=== PATIENT | female | born 1990 | race Hispanic/Latino ===

== ENCOUNTER 2016-06-22 01:36 | Emergency (ER) | payer MEDICAID, OTHER ==
[2016-06-22 01:41] VITALS: BMI 31.2
[2016-06-22 01:43] VITALS: TEMP 98.3
--- NOTE | 2016-06-22 02:02 | ED PDOC ---
Arrival/HPI - General Chief Complaint: Back Pain Time Seen by Provider: 06/22/16 01:39 Historian: Patient - History of Present Illness Narrative History of Present Illness (Text): 06/22/16 02:01 Javon Melton is a 26 year old female, P:1 A:1, currently 5 months , who presents to the Emergency department complaining of left mid to lower back discomfort status post mechanical fall. Patient states earlier tonight she slipped and fell backwards in to the bathtub.Patient denies any abdominal pain, vaginal bleeding, vaginal discharge, nausea, vomiting, head trauma/injury, neck pain, or any other complaints. Time/Duration: Other (tonight) Symptom Onset: Gradual Symptom Course: Unchanged Activities at Onset: Light Context: Standing, Tripped Past Medical History - Provider Review Nursing Documentation Reviewed: Yes - Infectious Disease Hx of Infectious Diseases: None - Tetanus Immunization Tetanus Immunization: Unknown - Past Medical History Past Medical History: No Previous - Psychiatric Hx Substance Use: No - Past Surgical History Past Surgical History: No Previous - Anesthesia Hx Anesthesia: No Hx Anesthesia Reactions: No Hx Malignant Hyperthermia: No - Suicidal Assessment Feels Threatened In Home Enviroment: No Family/Social History - Physician Review Nursing Documentation Reviewed: Yes Family/Social History: No Known Family HX Smoking Status: Never Smoked Hx Alcohol Use: No Hx Substance Use: No Allergies/Home Meds Allergies/Adverse Reactions: Allergies No Known Allergies Allergy (Verified 09/03/12 06:54) per patient Home Medications: Home Meds Medication Instructions Recorded Confirmed No Known Home Med 06/22/16 06/22/16 Review of Systems - Physician Review All systems were reviewed & negative as marked: Yes - Review of Systems Constitutional: Normal. absent: Fevers Eyes: Normal ENT: Normal Respiratory: Normal. absent: SOB, Cough Cardiovascular: Normal. absent: Chest Pain Gastrointestinal: Normal. absent: Abdominal Pain, Diarrhea, Nausea, Vomiting Genitourinary Female: Normal. absent: Dysuria, Frequency, Hematuria, Urine Output Changes Musculoskeletal: Back Pain. absent: Neck Pain Skin: Normal Neurological: Normal Endocrine: Normal Hemo/Lymphatic: Normal Psychiatric: Normal Physical Exam Vital Signs Reviewed: Yes Vital Signs Temp Pulse Resp BP Pulse Ox 06/22/16 01:43 98.3 F 92 H 18 131/81 99 Temperature: Afebrile Blood Pressure: Normal Pulse: Regular Respiratory Rate: Normal Appearance: Positive for: Well-Appearing, Non-Toxic, Comfortable Pain Distress: None Mental Status: Positive for: Alert and Oriented X 3 - Systems Exam Head: Present: Atraumatic, Normocephalic Pupils: Present: PERRL Extroacular Muscles: Present: EOMI Conjunctiva: Present: Normal Mouth: Present: Moist Mucous Membranes Neck: Present: Normal Range of Motion Respiratory/Chest: Present: Clear to Auscultation, Good Air Exchange. No: Respiratory Distress, Accessory Muscle Use Cardiovascular: Present: Regular Rate and Rhythm, Normal S1, S2. No: Murmurs Abdomen: Present: Normal Bowel Sounds. No: Tenderness, Distention, Peritoneal Signs Back: Present: Paraspinal Tenderness (Mild left lateral posterior thoracic back tenderness, no crepitus). No: CVA Tenderness, Midline Tenderness, Pain with Leg Raise Upper Extremity: Present: Normal Inspection, Normal ROM, NORMAL PULSES. No: Cyanosis, Edema Lower Extremity: Present: Normal Inspection, NORMAL PULSES, Normal ROM. No: Edema Neurological: Present: GCS=15, CN II-XII Intact, Speech Normal, Motor Func Grossly Intact, Normal Sensory Function Skin: Present: Warm, Dry, Normal Color. No: Rashes Psychiatric: Present: Alert, Oriented x 3, Normal Insight, Normal Concentration Medical Decision Making ED Course and Treatment: 06/22/16 02:01 Impression: 26 year old female complaining of mid to lower back pain s/p fall tonight. Differential Diagnosis include but are not limited to: muscular strain vs. contusion Plan: -- Tylenol -- Heart Rate -- Reassess and disposition Progress Notes: 06/22/16 03:00 RN reports heart rate: 140 bpm. 06/22/16 03:35 On re-evaluation, the patient feels better and is in no acute distress. I have discussed the results and plan with the patient, who expresses understanding. Patient in agreement with plan to discharged home. Patient is stable for discharge. Patient was instructed to follow up with physician/clinic in 1-2 days or return if symptoms worsen or new concerning symptoms arise. - Medication Orders Current Medication Orders: Discontinued Medications Acetaminophen (Tylenol 325mg Tab) 650 mg PO STAT STA Stop: 06/22/16 02:14 Last Admin: 06/22/16 02:24 Dose: 650 mg - Scribe Statement The provider has reviewed the documentation as recorded by the Stef Dowd Provider Attestation: All medical record entries made by the Westleyibkrupa were at my direction and personally dictated by me. I have reviewed the chart and agree that the record accurately reflects my personal performance of the history, physical exam, medical decision making, and the department course for this patient. I have also personally directed, reviewed, and agree with the discharge instructions and disposition. Disposition/Present on Arrival - Present on Arrival Any Indicators Present on Arrival: No History of DVT/PE: No History of Uncontrolled Diabetes: No Urinary Catheter: No History of Decub. Ulcer: No History Surgical Site Infection Following: None - Disposition Have Diagnosis and Disposition been Completed?: Yes Diagnosis: Muscle strain, Back contusion Disposition: HOME/ ROUTINE Disposition Time: 03:35 Patient Plan: Discharge Patient Problems: Current Active Problems Problem Status Onset Back contusion Acute Muscle strain Acute Condition: GOOD Additional Instructions: Rest/no strenuous physical activity/Tylenol as directed/follow up with your doctor this week Referrals: Rose Marie Cadena MD [Primary Care Provider] - Follow up with primary
[2016-06-22 04:03] VITALS: BP 101/66; PULSE 77; RESP 16; O2SAT 100
== END 2016-06-22 04:03 | disposition home or self-care (01) ==
LOC: ED 01:36
DX: S39.012A Strain of muscle, fascia and tendon of lower back, initial encounter (principal); S30.0XXA Contusion of lower back and pelvis, initial encounter; W01.0XXA Fall on same level from slipping, tripping and stumbling without subsequent striking against object, initial encounter

== ENCOUNTER 2018-03-05 19:57 | Emergency (ER) | payer SELFPAY ==
[2018-03-05 20:17] VITALS: BMI 30.5
[2018-03-05 20:26] VITALS: TEMP 98.6; O2SAT 100
[2018-03-05 21:18] LABS: ALB/GLOB RATIO 1.3 (1.1-1.8); ALBUMIN 4.5 g/dL (3.0-4.8); ALT/SGPT 22 U/L (7-56); AST/SGOT 22 U/L (14-36); BLOOD UREA NITROGEN 12 mg/dL (7-21); CALCIUM 10.1 mg/dL (8.4-10.5); GFR NON-AFRICAN AMERICAN > 60
[2018-03-05 21:25] LABS: HEMOGLOBIN 13.5 g/dL (12.0-16.0); MEAN CELL VOLUME 85.4 fl (80.0-105.0); MEAN CORPUSCULAR HEMOGLOBIN 28.7 pg (25.0-35.0); RBC 4.71 10^6/uL (3.5-6.1); WHITE BLOOD COUNT 13.5 10^3/uL (4.5-11.0)
[2018-03-05 21:26] LABS: BASO # 0.03 K/mm3 (0.0-2.0); BASO % 0.2 % (0.0-3.0); EOS # 0.1 (0.0-0.7); EOS % 0.8 % (1.5-5.0); GRAN # 7.83 (1.4-6.5); GRAN % 58.1 % (50.0-68.0); LYMPH # 4.8 (1.2-3.4); LYMPH % 35.9 % (22.0-35.0); MEAN CORPUSCULAR HGB CONC 33.6 g/dl (31.0-37.0); MEAN PLATELET VOLUME 10.6 fl (7.0-11.0); MONO # 0.7 (0.1-0.6)
[2018-03-05 21:28] LABS: TROPONIN I < 0.01 ng/mL
[2018-03-05 21:35] LABS: INR 1.03; PARTIAL THROMBOPLASTIN TIME 30.8 Seconds (25.1-36.5); PROTHROMBIN TIME 11.7 SECONDS (9.4-12.5)
[2018-03-05 21:40] LABS: D DIMER < 200 ng/mlDDU (0-243)
--- NOTE | 2018-03-05 22:09 | ED PDOC ---
Arrival/HPI - General Chief Complaint: Chest Pain Time Seen by Provider: 03/05/18 20:11 Historian: Patient - History of Present Illness Narrative History of Present Illness (Text): 03/05/18 22:07 A 27 year old female, with no significant past medical history, presents to the emergency department complaining of non-radiating, intermittent left-side chest pain for 6 days. Patient reports sometimes experiencing associated shortness of breath that last approximately 30 minutes. Pain worsens with movement, leaning forward, and with deep breathing. Patient denies any fever, cough, nausea, vomiting, back pain, leg pain/swelling, abdominal pain, or any other complaints at this time. Denies any history of smoking. Denies any recent travel. PMD: Dr. Baires Time/Duration: < week (6 days) Past Medical History - Provider Review Nursing Documentation Reviewed: Yes - Infectious Disease Hx of Infectious Diseases: None - Tetanus Immunization Tetanus Immunization: Unknown - Past Medical History Past Medical History: No Previous - Psychiatric Hx Substance Use: No - Past Surgical History Past Surgical History: No Previous - Anesthesia Hx Anesthesia: No Hx Anesthesia Reactions: No Hx Malignant Hyperthermia: No - Suicidal Assessment Feels Threatened In Home Enviroment: No Family/Social History - Physician Review Nursing Documentation Reviewed: Yes Family/Social History: No Known Family HX Smoking Status: Never Smoked Hx Alcohol Use: No Hx Substance Use: No Allergies/Home Meds Allergies/Adverse Reactions: Allergies No Known Allergies Allergy (Verified 09/03/12 06:54) per patient Review of Systems - Physician Review All systems were reviewed & negative as marked: Yes - Review of Systems Constitutional: absent: Fevers Respiratory: SOB (associated with chest pain, last for approximately 30 minutes). absent: Cough Cardiovascular: Chest Pain (non-radiating, intermittent left-side chest pain) Gastrointestinal: absent: Abdominal Pain, Nausea, Vomiting Musculoskeletal: absent: Back Pain, Other (no leg pain/swelling) Physical Exam Vital Signs Reviewed: Yes Vital Signs Temp Pulse Resp BP Pulse Ox 03/05/18 20:45 99 H 18 121/73 100 03/05/18 20:00 98.6 F 112 H 21 123/75 100 Temperature: Afebrile Blood Pressure: Normal Pulse: Regular Respiratory Rate: Normal Appearance: Positive for: Well-Appearing, Non-Toxic, Comfortable Pain Distress: Mild Mental Status: Positive for: Alert and Oriented X 3 - Systems Exam Head: Present: Atraumatic, Normocephalic Pupils: Present: PERRL Extroacular Muscles: Present: EOMI Conjunctiva: Present: Normal Mouth: Present: Moist Mucous Membranes Neck: Present: Normal Range of Motion Respiratory/Chest: Present: Clear to Auscultation, Good Air Exchange, Tender to Palpation (to the L midsternal chest). No: Respiratory Distress, Accessory Muscle Use Cardiovascular: Present: Regular Rate and Rhythm, Normal S1, S2. No: Murmurs Abdomen: No: Tenderness, Distention, Peritoneal Signs Back: Present: Normal Inspection Upper Extremity: Present: Normal Inspection. No: Cyanosis, Edema Lower Extremity: Present: Normal Inspection. No: Edema Neurological: Present: GCS=15, CN II-XII Intact, Speech Normal Skin: Present: Warm, Dry, Normal Color. No: Rashes Psychiatric: Present: Alert, Oriented x 3, Normal Insight, Normal Concentration Medical Decision Making ED Course and Treatment: 03/05/18 22:08 Impression: 27 year old female with non-radiating, intermittent left-side chest pain associated shortness of breath. No acute findings on physical examination. Plan: -- EKG -- Chest X-ray -- Nasal Cannula O2 -- POC Urine Test -- Toradol -- Reassess and disposition Progress Notes: EKG: ST at 123 bpm, (-) acute ST changes, as read by PA. CXR : NAD, as read by PA Labs reviewed : trop (-), d-dimer (-). On reevaluation, patient reports improvement of symptoms, denies any pain, SOB or back pain. VS : P 84 98%RA BP 106/61. On exam, patient remains awake alert and oriented 3 in no acute distress. Diagnostic results d/w the patient. Diagnosis of possible costochondritis d/w the patient. Advised to follow up with primary care physician tomorrow without fail. Advised to take medication as prescribed. Return to the emergency room at any time for any new or worsening symptoms. Patient states she fully agrees with and understands discharge instructions. States that she agrees with the plan and disposition. Verbalized and repeated discharge instructions and plan. I have given the patient opportunity to ask any additional questions. - Lab Interpretations Lab Results: PT 11.7 SECONDS (9.4-12.5) 03/05/18 20:20 INR 1.03 03/05/18 20:20 APTT 30.8 Seconds (25.1-36.5) 03/05/18 20:20 D-Dimer, Quantitative < 200 ng/mlDDU (0-243) 03/05/18 20:20 Troponin I < 0.01 ng/mL 03/05/18 20:20 Total Bilirubin 0.3 mg/dL (0.2-1.3) 03/05/18 20:20 AST 22 U/L (14-36) 03/05/18 20:20 ALT 22 U/L (7-56) 03/05/18 20:20 Alkaline Phosphatase 82 U/L (38-126) 03/05/18 20:20 Total Protein 8.0 g/dL (5.8-8.3) 03/05/18 20:20 Albumin 4.5 g/dL (3.0-4.8) 03/05/18 20:20 Globulin 3.5 gm/dL 03/05/18 20:20 Albumin/Globulin Ratio 1.3 (1.1-1.8) 03/05/18 20:20 - RAD Interpretation Radiology Orders: 03/05/18 20:46 CHEST PORTABLE [RAD] Stat - Medication Orders Current Medication Orders: Discontinued Medications Ketorolac Tromethamine (Toradol) 15 mg IVP STAT STA Stop: 03/05/18 20:51 Last Admin: 03/05/18 21:35 Dose: 15 mg MAR Pain Assessment Document 03/05/18 21:35 HN (Rec: 03/05/18 21:36 HN [id number]) Pain Reassessment Is this a pain reassessment? Yes Sleep Is patient sleeping during reassessment? No Presence of Pain Presence of Pain Yes Pain Scale Used Protocol: PSCALES Pain Scale Used Numeric Location Pain Location Body Site Chest Description Description Intermittent Intensity of Pain at present 7 IVP Administration Document 03/05/18 21:35 HN (Rec: 03/05/18 21:36 HN [id number]) Charges for Administration # of IVP Administrations 1 - PA / TAP GRINDER / Resident Statement MD/DO has reviewed & agrees with the documentation as recorded. - Scribe Statement The provider has reviewed the documentation as recorded by the Stef Crowell Provider Scribe Attestation: All medical record entries made by the Scribe were at my direction and personally dictated by me. I have reviewed the chart and agree that the record accurately reflects my personal performance of the history, physical exam, medical decision making, and the department course for this patient. I have also personally directed, reviewed, and agree with the discharge instructions and disposition. Disposition/Present on Arrival - Present on Arrival Any Indicators Present on Arrival: No History of DVT/PE: No History of Uncontrolled Diabetes: No Urinary Catheter: No History of Decub. Ulcer: No History Surgical Site Infection Following: None - Disposition Have Diagnosis and Disposition been Completed?: Yes Diagnosis: Chest wall pain Disposition: HOME/ ROUTINE Disposition Time: 23:15 Patient Plan: Discharge Condition: STABLE Discharge Instructions (ExitCare): Chest Pain (ED), Costochondritis Additional Instructions: Thank you for letting us take care of you today. You were treated for chest wall pain. The emergency medical care you received today was directed at your acute symptoms. If you were prescribed any medication, please fill it and take as directed. It may take several days for your symptoms to resolve. Return to the Emergency Department if your symptoms worsen, do not improve, or if you have any other problems. Please contact your doctor in 2 days for re-evaluation and follow up. Bring any paperwork you were given at discharge with you along with any medications you are taking to your follow up visit. Our treatment cannot replace ongoing medical care by a primary care provider (PCP) outside of the emergency department. Thank you for allowing the [email or web address] team to be part of your care today. If you had an X-Ray : A Radiologist will review the ED reading if any change in treatment is needed we will contact you. Prescriptions: Naproxen 500 mg PO BID PRN #20 tablet PRN Reason: Pain, Moderate (4-7) Referrals: Rose Marie Cadena MD [Primary Care Provider] - Follow up with primary Forms: [employer] (Setswana), WORK NOTE
[2018-03-05] MEDS ORDERED: Potassium Chloride 40 mEq/30 ml LIQ UD PO STA (22:11)
[2018-03-05 23:53] VITALS: BP 125/82; PULSE 78; RESP 16
--- NOTE | 2018-03-06 08:33 | RAD ---
HISTORY: CP COMPARISON: None available. TECHNIQUE: Chest, one view. FINDINGS: LUNGS: No focal consolidation. Please note that chest x-ray has limited sensitivity for the detection of pulmonary masses. PLEURA: No significant pleural effusion identified. No definite pneumothorax . CARDIOVASCULAR: Heart size appears within normal limits. No significant atherosclerotic calcification present. OSSEOUS STRUCTURES: No acute osseous abnormality identified. VISUALIZED UPPER ABDOMEN: Unremarkable. OTHER FINDINGS: None. IMPRESSION: No focal consolidation.
--- NOTE | 2018-03-06 20:21 | CARD ---
APPROVED REPORT Date of service: 03/05/2018 EKG Measurement Heart [id number] <Conclusion> Sinus tachycardia Otherwise normal ECG
== END 2018-03-05 23:46 | disposition home or self-care (01) ==
LOC: ED 19:57
DX: R07.89 Other chest pain (principal)
CPT/HCPCS: 71045; 80053; 81025; 82550; 83615; 83735; 84484; 85025; 85378; 85610; 85730; 93005; 96374; 99284; J1885; J3480

== ENCOUNTER 2018-06-18 02:01 | Inpatient (IN) | payer MEDICAID ==
[2018-06-18] MEDS ORDERED: Sodium Chloride 0.9% 1,000 ML IV STA (02:32)
[2018-06-18] MEDS ORDERED: Morphine 2 mg/ml ISec IVP STA ×4 (02:39→06:18)
--- NOTE | 2018-06-18 02:40 | ED PDOC ---
Arrival/HPI - General Chief Complaint: Abdominal Pain Time Seen by Provider: 06/18/18 02:04 Historian: Patient - History of Present Illness Narrative History of Present Illness (Text): 06/18/18 02:30 Javon Melton is a 28 year old female, with no significant past medical history, who presents to the ED complaining of abdominal pain since yesterday. Patient reports associated nausea and vomiting. Patient denies any fever, chills, chest pain, shortness of breath, diarrhea, urinary symptoms, back pain, neck pain, headache, dizziness, or any other complaints. Symptom Onset: Gradual Symptom Course: Unchanged Activities at Onset: Light Context: Home Past Medical History - Provider Review Nursing Documentation Reviewed: Yes Primary Care Physician: Rose Marie Cadena MD - Infectious Disease Hx of Infectious Diseases: None - Tetanus Immunization Tetanus Immunization: Unknown - Past Medical History Past Medical History: No Previous - Psychiatric Hx Substance Use: No - Past Surgical History Past Surgical History: No Previous - Anesthesia Hx Anesthesia: No Hx Anesthesia Reactions: No Hx Malignant Hyperthermia: No - Suicidal Assessment Feels Threatened In Home Enviroment: No Family/Social History - Physician Review Nursing Documentation Reviewed: Yes Family/Social History: Unknown Family HX Smoking Status: Never Smoked Hx Alcohol Use: No Hx Substance Use: No Allergies/Home Meds Allergies/Adverse Reactions: Allergies No Known Allergies Allergy (Verified 09/03/12 06:54) per patient Home Medications: Home Meds Medication Instructions Recorded Confirmed No Known Home Med 06/18/18 06/18/18 Review of Systems - Physician Review All systems were reviewed & negative as marked: Yes - Review of Systems Constitutional: Normal. absent: Fevers Eyes: Normal ENT: Normal Respiratory: Normal. absent: SOB, Cough Cardiovascular: Normal. absent: Chest Pain Gastrointestinal: Abdominal Pain, Nausea, Vomiting Genitourinary Female: Normal. absent: Dysuria, Frequency, Hematuria, Urine Output Changes Musculoskeletal: Normal. absent: Back Pain, Neck Pain Skin: Normal. absent: Rash Neurological: Normal. absent: Headache, Dizziness Endocrine: Normal Hemo/Lymphatic: Normal Psychiatric: Normal Physical Exam Vital Signs Reviewed: Yes Vital Signs Temp Pulse Resp BP Pulse Ox 06/18/18 02:15 97.6 F 72 18 114/56 L 96 Temperature: Afebrile Blood Pressure: Normal Pulse: Regular Respiratory Rate: Normal Appearance: Positive for: Well-Appearing, Non-Toxic, Comfortable Pain Distress: None Mental Status: Positive for: Alert and Oriented X 3 - Systems Exam Head: Present: Atraumatic, Normocephalic Pupils: Present: PERRL Extroacular Muscles: Present: EOMI Conjunctiva: Present: Normal Mouth: Present: Moist Mucous Membranes Neck: Present: Normal Range of Motion Respiratory/Chest: Present: Clear to Auscultation, Good Air Exchange. No: Respiratory Distress, Accessory Muscle Use Cardiovascular: Present: Regular Rate and Rhythm, Normal S1, S2. No: Murmurs Abdomen: Present: Tenderness (Mild RLQ tenderness). No: Distention, Peritoneal Signs Back: Present: Normal Inspection Upper Extremity: Present: Normal Inspection. No: Cyanosis, Edema Lower Extremity: Present: Normal Inspection. No: Edema Neurological: Present: GCS=15, CN II-XII Intact, Speech Normal Skin: Present: Warm, Dry, Normal Color. No: Rashes Psychiatric: Present: Alert, Oriented x 3, Normal Insight, Normal Concentration Medical Decision Making ED Course and Treatment: 06/18/18 02:30 Impression: 28 year old female complaining of abdominal pain, nausea, and vomiting. Plan: -- Labs, lipase -- IV fluids -- Zofran -- Morphine -- Reassess and disposition Prior Visits: Notes and results from previous visits were reviewed. Progress Notes: 06/18/18 04:23 CT Abdomen and Pelvis: Changes of pelvic congestion syndrome on the right side. Impacted appendicolith in the base of the appendix. Mildly enlarged appendix measuring 1.2 cm. Uncomplicated acute appendicitis without perforation or abscess formation. Diffuse thickening and enhancement of the wall of the appendix. Uncomplicated colonic diverticulosis. Mild amount of fecal residue in the large bowel. Scattered fluid-filled small bowel, probably mild ileus. The liver is of uniform attenuation without mass or defect. There is no intra or extrahepatic biliary ductal dilatation. The spleen is normal. The gallbladder is within normal limits. The pancreas is of normal contour and attenuation characteristics. There is no evidence of adrenal mass. Both kidneys demonstrate prompt and equal nephrograms. The kidneys are normal in size, shape and configuration. There is no evidence of renal or ureteral mass. No renal or ureteral calculi are identified. There is no hydroureter or hydronephrosis. There is no bowel wall thickening. No evidence for small or large bowel obstruction. There is no evidence of abdominal ascites or lymphadenopathy. There is no evidence of intrinsic or extrinsic bladder mass. There is no pelvic ascites or lymphadenopathy. Images of the lung bases show no evidence of pleural or parenchymal mass. There are no pleural effusions. The bony structures are free of lytic or blastic lesions. IMPRESSION: Changes of pelvic congestion syndrome on the right side. Impacted appendicolith in the base of the appendix. Mildly enlarged appendix measuring 1.2 cm. Uncomplicated acute appendicitis without perforation or abscess formation. Diffuse thickening and enhancement of the wall of the appendix. Uncomplicated colonic diverticulosis. Mild amount of fecal residue in the large bowel. Scattered fluid-filled small bowel, probably mild ileus. Electronically signed on Jun 18, 2018 4:09:03 AM EDT by: Carli Burgess M.D., Certified by ABR, MSK, Neuroradiology 06/18/18 04:26 Case discussed with certified surgical first assistant underwriting consultant, who will evaluate pt in Emergency department. 06/18/18 04:[address] Hayden, surgeon underwriting consultant, who is aware and agrees with plan. Accepts pt in to his service. Pt will be admitted to [facility] [place] for appendicitis. - Lab Interpretations I have reviewed the lab results: Yes - RAD Interpretation Computer Forwarding System Markup Clerk: Radiologist - Medication Orders Current Medication Orders: Sodium Chloride (Sodium Chloride 0.9%) 1,000 mls @ 1,000 mls/hr IV .Q1H STA Stop: 06/18/18 03:31 Discontinued Medications Ondansetron HCl (Zofran Inj) 4 mg IVP STAT STA Stop: 06/18/18 02:33 - Scribe Statement The provider has reviewed the documentation as recorded by the Stef Dowd Provider Scribe Attestation: All medical record entries made by the Scribe were at my direction and personally dictated by me. I have reviewed the chart and agree that the record accurately reflects my personal performance of the history, physical exam, medical decision making, and the department course for this patient. I have also personally directed, reviewed, and agree with the discharge instructions and disposition. Disposition/Present on Arrival - Present on Arrival Any Indicators Present on Arrival: No History of DVT/PE: No History of Uncontrolled Diabetes: No Urinary Catheter: No History of Decub. Ulcer: No History Surgical Site Infection Following: None - Disposition Have Diagnosis and Disposition been Completed?: Yes Diagnosis: Appendicitis Disposition: HOSPITALIZED Disposition Time: 04:30 Condition: GOOD
[2018-06-18 02:56] LABS: BASO # 0.04 K/mm3 (0.0-2.0); BASO % 0.2 % (0.0-3.0); EOS # 0.1 (0.0-0.7); EOS % 0.6 % (1.5-5.0); HEMOGLOBIN 12.5 g/dL (12.0-16.0); LYMPH % 11.9 % (22.0-35.0); MEAN CELL VOLUME 86.8 fl (80.0-105.0); MEAN CORPUSCULAR HEMOGLOBIN 28.9 pg (25.0-35.0); MEAN CORPUSCULAR HGB CONC 33.2 g/dl (31.0-37.0); MEAN PLATELET VOLUME 10.7 fl (7.0-11.0); MONO # 0.7 (0.1-0.6); RBC 4.33 10^6/uL (3.5-6.1); RED CELL DISTRIBUTION WIDTH 13.3 % (11.5-14.5); WHITE BLOOD COUNT 16.7 10^3/uL (4.5-11.0)
[2018-06-18 03:01] LABS: ALB/GLOB RATIO 1.3 (1.1-1.8); ALBUMIN 4.2 g/dL (3.0-4.8); ALT/SGPT 16 U/L (7-56); AST/SGOT 21 U/L (14-36); BLOOD UREA NITROGEN 12 mg/dL (7-21); GFR NON-AFRICAN AMERICAN > 60; INR 1.13; LIPASE 44 U/L (23-300); PARTIAL THROMBOPLASTIN TIME 35.8 Seconds (26.9-38.3); PROTHROMBIN TIME 12.5 SECONDS (9.4-12.5)
[2018-06-18] MEDS ORDERED: Iohexol 350 MG/100 ML VIAL ONE (03:21)
[2018-06-18] MEDS ORDERED: Morphine 4 mg/ml ISec IVP PRN (04:32)
[2018-06-18] MEDS ORDERED: cefTRIAXone 1 gm 1 GM/100 ML BAG IVPB STA (04:32)
[2018-06-18] MEDS ORDERED: metroNIDAZOLE IV 500 mg/100 ml 500 MG/100 ML BAG IVPB STA (04:33)
[2018-06-18] MEDS ORDERED: Lactated Ringer's 1,000 ML IV SCH ×2 (04:45→15:45)
--- NOTE | 2018-06-18 06:26 | CP.PCM.HP ---
History of Present Illness - History of Present Illness History of Present Illness: GENERAL SURGERY HISTORY AND PHYSICAL FOR DR. DU 28yo F with no PMHx presents to the ED with abdominal pain that began at 9:[address] night in the RLQ. She describes the pain as sharp. She vomited twice at home and once in the ED. Denies diarrhea, last BM was this AM. States pain has now spread from right lower quadrant to entire lower abdomen. LMP: May 25. PMHx: none Surgeries: none Allergies: none Meds: none Social history: denies tobacco, etoh, illicit drug use Present on Admission - Present on Admission Any Indicators Present on Admission: No Review of Systems - Review of Systems All systems: reviewed and no additional remarkable complaints except (as per HPI) Past Patient History - Infectious Disease Hx of Infectious Diseases: None - Tetanus Immunizations Tetanus Immunization: Unknown - Past Social History Smoking Status: Never Smoked - PSYCHIATRIC Hx Substance Use: No - SURGICAL HISTORY Hx Surgeries: No - ANESTHESIA Hx Anesthesia: No Hx Anesthesia Reactions: No Hx Malignant Hyperthermia: No Meds Allergies/Adverse Reactions: Allergies Allergy/AdvReac Type Severity Reaction Status Date / Time No Known Allergies Allergy Verified 09/03/12 06:54 Physical Exam - Constitutional Appears: No Acute Distress, Other (uncomfortable) - Respiratory Exam Respiratory Exam: NORMAL BREATHING PATTERN. absent: Respiratory Distress - Cardiovascular Exam Cardiovascular Exam: +S1, +S2 - GI/Abdominal Exam GI & Abdominal Exam: Guarding, Soft, Tenderness (tender to RLQ, LLQ, suprapubic but more in RLQ). absent: Distended, Firm, Rebound, Rigid - Extremities Exam Extremities exam: Positive for: normal inspection - Neurological Exam Neurological exam: Alert, CN II-XII Intact, Oriented x3 - Psychiatric Exam Psychiatric exam: Normal Affect, Normal Mood - Skin Skin Exam: Dry, Normal Color, Warm Results - Vital Signs Recent Vital Signs: Last Vital Signs Temp 97.6 F 06/18/18 02:15 Pulse 78 06/18/18 05:51 Resp 16 06/18/18 05:51 BP 102/68 06/18/18 05:51 Pulse Ox 100 06/18/18 05:51 - Labs Result Diagrams: 06/18/18 02:40 06/18/18 02:40 Labs: Laboratory Results - last 24 hr 06/18/18 06/18/18 06/18/18 02:40 02:40 02:40 WBC 16.7 H D RBC 4.33 Hgb 12.5 Hct 37.6 MCV 86.8 MCH 28.9 MCHC 33.2 RDW 13.3 Plt Count 226 MPV 10.7 Neut % (Auto) 83.3 H Lymph % (Auto) 11.9 L [place] % (Auto) 4.0 Eos % (Auto) 0.6 L Baso % (Auto) 0.2 Lymph # (Auto) 2.0 [place] # (Auto) 0.7 H Eos # (Auto) 0.1 Baso # (Auto) 0.04 Absolute Neuts (auto) 13.89 H PT 12.5 INR 1.13 APTT 35.8 Sodium 138 Potassium 4.1 Chloride 103 Carbon Dioxide 24 Anion Gap 15 BUN 12 Creatinine 0.6 L Est GFR ( Amer) > 60 Est GFR (Non-Af Amer) > 60 Random Glucose 111 H Calcium 9.0 Magnesium 1.9 Total Bilirubin 0.3 AST 21 ALT 16 Alkaline Phosphatase 65 Total Protein 7.5 Albumin 4.2 Globulin 3.3 Albumin/Globulin Ratio 1.3 Lipase 44 Assessment & Plan - Assessment and Plan (Free Text) Assessment: 28yo F with no PMHx presents to the ED with abdominal pain and was found to have acute appendicitis - Afebrile, VSS - WBC 16.7 - CT: impacted appendicolith at base of appendix, mildly enlarged appendix 1.2cm, diffuse thickening and enhancement of wall of appendix - Plan for OR today for laparoscopic appendectomy - NPO - IV fluids - Morphine PRN pain - Zofran PRN nausea - Discussed plan with Dr. Catracho Moraes PGY-4
[2018-06-18] MEDS: Piperacillin/Tazobact 3.375 gm 100 ML IVPB SCH ×3 (06:39→22:35)
--- NOTE | 2018-06-18 08:39 | CT ---
Date of service: 06/18/2018 PROCEDURE: CT Abdomen and Pelvis with contrast HISTORY: Right lower quadrant pain. Negative test (concurrent with this examination). COMPARISON: 12/31/2013. CT abdomen 12/24/2013 abdominal ultrasound. TECHNIQUE: Intravenous contrast dose: 96 cc Omnipaque 350 Radiation dose: Total exam DLP = 600.68 mGy-cm. This CT exam was performed using one or more of the following dose reduction techniques: Automated exposure control, adjustment of the mA and/or kV according to patient size, and/or use of iterative reconstruction technique. FINDINGS: LOWER THORAX: Unremarkable. LIVER: Unremarkable. No gross lesion or ductal dilatation. GALLBLADDER AND BILE DUCTS: Unremarkable. PANCREAS: Unremarkable. No gross lesion or ductal dilatation. SPLEEN: Unremarkable. ADRENALS: Unremarkable. No mass. KIDNEYS AND URETERS: Unremarkable. No hydronephrosis. No solid mass. VASCULATURE: Unremarkable. No aortic aneurysm. No atherosclerotic calcification or mural plaque present. BOWEL: Unremarkable. No obstruction. No gross mural thickening. APPENDIX: Dilated fluid-filled appendix with multiple appendicular less. Trace right lower quadrant/periappendiceal inflammatory changes. PERITONEUM: Trace free fluid in the cul-de-sac. No free air identified. LYMPH NODES: Unremarkable. No enlarged lymph nodes. BLADDER: Unremarkable. REPRODUCTIVE: Unremarkable. BONES: No acute fracture. OTHER FINDINGS: None. IMPRESSION: Acute, uncomplicated appendicitis. No adjacent drainable collection. Trace free fluid in the cul-de-sac. No free air identified. Additional benign and/or incidental findings described above. Concordant results (preliminary interpretation) provided by [facility]. Procedure Completed: 03:28. Preliminary Report: Interpreted and electronically signed: 04:09. Final Interpretation: 08:35. June 18, 2018.
[2018-06-18 12:23] VITALS: BMI 21.6
[2018-06-18] MEDS ORDERED: Pneumococcal 23-Valent Vaccine IM ONE (12:23)
[2018-06-18] MEDS ORDERED: Bupivacaine 0.5% 50 ML IJ ONE (13:43)
[2018-06-18] MEDS ORDERED: Midazolam 2 MG/2 ML VIAL ONE (14:10)
[2018-06-18] MEDS ORDERED: Propofol 10 mg/ml Inj (20 ML) ONE (14:10)
[2018-06-18] MEDS ORDERED: Rocuronium 10 mg/ml (5 ml) ONE (14:11)
[2018-06-18] MEDS ORDERED: Succinylcholine 200 mg/10 ml Inj IV ONE (14:12)
[2018-06-18] MEDS ORDERED: Neostigmine Methylsulfate 3mg/3ml Syringe IV ONE (14:59)
[2018-06-18] MEDS ORDERED: oxyCODONE 5 mg Immediate Release Tab PO PRN (15:21)
--- NOTE | 2018-06-18 15:25 | PCM.SURG1 ---
Surgeon's Initial Post Op Note - Surgeon's Notes Surgeon: Dr. Hayden [employer] Furnace Fabricator: Dr. Jett, Dr. Palmer Type of Anesthesia: General Endo Anesthesia Administered By: Dr. Gong Pre-Operative Diagnosis: acute appendicitis Operative Findings: see operative dictation Post-Operative Diagnosis: same Operation Performed: laparoscopic appendectomy Specimen/Specimens Removed: appendix Estimated Blood Loss: EBL {In ML}: 5 Blood Products Given: N/A Drains Used: No Drains Post-Op Condition: Good Date of Surgery/Procedure: 06/18/18 Time of Surgery/Procedure: 15:25
[2018-06-18] MEDS ORDERED: HYDROmorphone 0.5 mg/0.5 ml ISec IVP PRN (15:32)
[2018-06-18] MEDS ORDERED: HYDROmorphone 0.5 mg/0.5 ml ISec ONE (15:54)
[2018-06-18] MEDS: Sodium Chloride 0.9% 1,000 ML IV SCH (20:06)
[2018-06-19] MEDS: Sodium Chloride 0.9% 1,000 ML IV SCH ×2 (01:53→05:29)
[2018-06-19] MEDS: Piperacillin/Tazobact 3.375 gm 100 ML IVPB SCH (05:28)
[2018-06-19 07:39] LABS: BASO # 0.02 K/mm3 (0.0-2.0); BASO % 0.2 % (0.0-3.0); EOS # 0.2 (0.0-0.7); EOS % 1.4 % (1.5-5.0); LYMPH % 18.5 % (22.0-35.0); MEAN CELL VOLUME 89.3 fl (80.0-105.0); MEAN CORPUSCULAR HEMOGLOBIN 28.2 pg (25.0-35.0); MEAN CORPUSCULAR HGB CONC 31.6 g/dl (31.0-37.0); MEAN PLATELET VOLUME 11.4 fl (7.0-11.0); MONO # 0.5 (0.1-0.6); RBC 3.65 10^6/uL (3.5-6.1); RED CELL DISTRIBUTION WIDTH 13.8 % (11.5-14.5); WHITE BLOOD COUNT 10.6 10^3/uL (4.5-11.0)
[2018-06-19 07:42] LABS: HEMOGLOBIN 10.3 g/dL (12.0-16.0)
--- NOTE | 2018-06-19 07:53 | CP.PCM.PN ---
Subjective - Date & Time of Evaluation Date of Evaluation: 06/19/18 Time of Evaluation: 07:49 - Subjective Subjective: Surgery Progress Note for Dr. Hayden 28F seen and evaluated at bedside this morning. No acute events overnight. No complaints this morning. Pain is well controlled. Patient is voiding, tolerating diet. Denies f/c, n/v/d, SOB, CP, or urinary symptoms. Objective - Vital Signs/Intake and Output Vital Signs (last 24 hours): Temp Pulse Resp BP Pulse Ox 98.7 F 65 18 92/56 L 96 06/18/18 22:40 06/18/18 22:40 06/18/18 22:40 06/18/18 22:40 06/18/18 22:40 Intake and Output: 06/19/18 06/19/18 06:59 18:59 Intake Total 360 Output Total 200 Balance 160 - Medications Medications: Current Medications Acetaminophen (Tylenol 325mg Tab) 650 mg PO Q4H PRN PRN Reason: Pain, Mild (1-3) Enoxaparin Sodium (Lovenox) 30 mg SC DAILY MARGOT; Protocol Piperacillin Sod/Tazobactam Sod (Zosyn 3.375 In Ns 100ml) 100 mls @ 25 mls/hr IVPB Q8 MARGOT; Protocol Last Admin: 06/19/18 05:28 Dose: 25 mls/hr Sodium Chloride (Sodium Chloride 0.9%) 1,000 mls @ 150 mls/hr IV .Q6H40M MARGOT Last Admin: 06/19/18 05:29 Dose: 150 mls/hr Ondansetron HCl (Zofran Inj) 4 mg IVP Q4 PRN PRN Reason: Nausea/Vomiting Oxycodone HCl (Oxycodone Immediate Release Tab) 5 mg PO Q6H PRN PRN Reason: Pain, severe (8-10) Tramadol HCl (Ultram) 50 mg PO TID PRN PRN Reason: Pain, moderate (4-7) Last Admin: 06/19/18 05:48 Dose: 50 mg - Labs Labs: 06/19/18 07:15 06/18/18 02:40 PT 12.5 SECONDS (9.4-12.5) 06/18/18 02:40 INR 1.13 06/18/18 02:40 APTT 35.8 Seconds (26.9-38.3) 06/18/18 02:40 - Constitutional Appears: Well, Non-toxic, No Acute Distress - Head Exam Head Exam: ATRAUMATIC, NORMAL INSPECTION, NORMOCEPHALIC - Eye Exam Eye Exam: EOMI Pupil Exam: PERRL - ENT Exam ENT Exam: Mucous Membranes Moist - Respiratory Exam Respiratory Exam: NORMAL BREATHING PATTERN. absent: Wheezes, Respiratory Distress - Cardiovascular Exam Cardiovascular Exam: REGULAR RHYTHM, +S1, +S2 - GI/Abdominal Exam GI & Abdominal Exam: Soft, Tenderness, Normal Bowel Sounds. absent: Distended, Guarding, Rigid, Rebound - Extremities Exam Extremities Exam: Normal Inspection - Neurological Exam Neurological Exam: Alert, Awake, Oriented x3 - Psychiatric Exam Psychiatric exam: Normal Affect, Normal Mood - Skin Skin Exam: Dry, Intact, Normal Color, Warm Assessment and Plan - Assessment and Plan (Free Text) Assessment: 28F s/p laparoscopic appendectomy POD1 Plan: Pain control and antiemetics Regular diet Discontinue IVF Encourage ambulation Cleared for discharge from a surgical standpoint Patient to call and make an appointment - follow up with Dr. Hayden in 2 weeks Jim Palmer PGY1
[2018-06-19 07:57] LABS: BLOOD UREA NITROGEN 8 mg/dL (7-21); CALCIUM 7.9 mg/dL (8.4-10.5); GFR NON-AFRICAN AMERICAN > 60
[2018-06-19] MEDS ORDERED: Enoxaparin 30 mg Syringe SC SCH (10:00)
--- NOTE | 2018-06-19 12:36 | CP.PCM.DIS ---
Provider - Provider Date of Admission: 06/18/18 04:33 Attending physician: Phu Hayden MD Primary care physician: Rose Marie Cadena MD Time Spent in preparation of Discharge (in minutes): 60 Hospital Course - Lab Results Lab Results: Most Recent Lab Values WBC 10.6 10^3/uL (4.5-11.0) D 06/19/18 07:15 RBC 3.65 10^6/uL (3.5-6.1) 06/19/18 07:15 Hgb 10.3 g/dL (12.0-16.0) L D 06/19/18 07:15 Hct 32.6 % (36.0-48.0) L 06/19/18 07:15 MCV 89.3 fl (80.0-105.0) 06/19/18 07:15 MCH 28.2 pg (25.0-35.0) 06/19/18 07:15 MCHC 31.6 g/dl (31.0-37.0) 06/19/18 07:15 RDW 13.8 % (11.5-14.5) 06/19/18 07:15 Plt Count 185 10^3/uL (120.0-450.0) 06/19/18 07:15 MPV 11.4 fl (7.0-11.0) H 06/19/18 07:15 Neut % (Auto) 74.9 % (50.0-68.0) H 06/19/18 07:15 Lymph % (Auto) 18.5 % (22.0-35.0) L 06/19/18 07:15 [place] % (Auto) 5.0 % (1.0-6.0) 06/19/18 07:15 Eos % (Auto) 1.4 % (1.5-5.0) L 06/19/18 07:15 Baso % (Auto) 0.2 % (0.0-3.0) 06/19/18 07:15 Lymph # (Auto) 2.0 (1.2-3.4) 06/19/18 07:15 [place] # (Auto) 0.5 (0.1-0.6) 06/19/18 07:15 Eos # (Auto) 0.2 (0.0-0.7) 06/19/18 07:15 Baso # (Auto) 0.02 K/mm3 (0.0-2.0) 06/19/18 07:15 Absolute Neuts (auto) 7.92 (1.4-6.5) H 06/19/18 07:15 PT 12.5 SECONDS (9.4-12.5) 06/18/18 02:40 INR 1.13 06/18/18 02:40 APTT 35.8 Seconds (26.9-38.3) 06/18/18 02:40 Sodium 137 mmol/L (132-148) 06/19/18 07:15 Potassium 3.9 mmol/L (3.6-5.0) 06/19/18 07:15 Chloride 108 mmol/L (98-107) H 06/19/18 07:15 Carbon Dioxide 25 mmol/L (21-33) 06/19/18 07:15 Anion Gap 8 (10-20) L 06/19/18 07:15 BUN 8 mg/dL (7-21) 06/19/18 07:15 Creatinine 0.5 mg/dl (0.7-1.2) L 06/19/18 07:15 Est GFR ( Amer) > 60 06/19/18 07:15 Est GFR (Non-Af Amer) > 60 06/19/18 07:15 Random Glucose 91 mg/dL (70-110) 06/19/18 07:15 Calcium 7.9 mg/dL (8.4-10.5) L 06/19/18 07:15 Magnesium 1.9 mg/dL (1.7-2.2) 06/18/18 02:40 Total Bilirubin 0.3 mg/dL (0.2-1.3) 06/18/18 02:40 AST 21 U/L (14-36) 06/18/18 02:40 ALT 16 U/L (7-56) 06/18/18 02:40 Alkaline Phosphatase 65 U/L (38-126) 06/18/18 02:40 Total Protein 7.5 g/dL (5.8-8.3) 06/18/18 02:40 Albumin 4.2 g/dL (3.0-4.8) 06/18/18 02:40 Globulin 3.3 gm/dL 06/18/18 02:40 Albumin/Globulin Ratio 1.3 (1.1-1.8) 06/18/18 02:40 Lipase 44 U/L (23-300) 06/18/18 02:40 - Hospital Course Hospital Course: 28 year old female with no PMHx presented to the ED with abdominal pain that began on 06/17/[address] scan was done in the emergency department showing acute, uncomplicated appendicitis. Patient admitted and scheduled for the operating room the following morning with surgeon Dr. Hayden. Patient was started on antibiotics and pain controlled. Patient underwent laparoscopic appdenctomy on 06/18/18. Patient tolerated the procedure without complications. Patient started on a regular diet that was tolerated, pain appropriately controlled. Patient voiding, ambulated, and passed flatus. Patient cleared for discharge and to follow up with Dr. Hayden 2 weeks from discharge. Further instructions in instruction packet. Patient verbalized and acknowledged understanding of treatment plan moving forward. All questions and concerns addressed. Above is a brief summary, for a detailed hospital course please refer to medical records. Discharge Exam - Head Exam Head Exam: ATRAUMATIC, NORMAL INSPECTION, NORMOCEPHALIC - Eye Exam Eye Exam: EOMI Pupil Exam: PERRL - ENT Exam ENT Exam: Mucous Membranes Moist - Respiratory Exam Respiratory Exam: NORMAL BREATHING PATTERN. absent: Wheezes, Respiratory Distress - Cardiovascular Exam Cardiovascular Exam: REGULAR RHYTHM, +S1, +S2 - GI/Abdominal Exam GI & Abdominal Exam: Normal Bowel Sounds, Soft, Tenderness. absent: Distended, Firm, Guarding, Rebound, Rigid - Neurological Exam Neurological exam: Alert, Oriented x3 - Psychiatric Exam Psychiatric exam: Normal Affect, Normal Mood - Skin Skin Exam: Dry, Intact, Normal Color, Warm Additional comments: surgical incision sites c/d/i Discharge Plan - Follow Up Plan Condition: GOOD Disposition: HOME/ ROUTINE Instructions: Appendectomy, Laparoscopic Surgery (DC) Additional Instructions: Please follow up with your surgeon Dr Hayden in 2 weeks. Please call to make an appointment. Please resume any home prescription medications and regular diet as tolerated. For pain, Tylenol or Ibuprofen. Do not take ibuprofen on an empty stomach. No heavy lifting greater than 15 lbs for the next 4 weeks. Activity as tolerated. Encouraged to ambulate. Ok to shower. Avoid baths, jacuzzis or other large bodies of water for the next 2 weeks. Ok to remove bandaids today. There is a special skin glue over the incisions that will slowly come off on its own. Do not remove the glue yourself. If symptoms worsen, please promptly return to nearest ED. Referrals: Rose Marie Cadena MD [Primary Care Provider] -
[2018-06-19 15:44] VITALS: BP 95/58; PULSE 69; RESP 18; TEMP 97.9; O2SAT 95
--- NOTE | 2018-06-27 01:57 | OP ---
PROCEDURE DATE: 06/18/2018 PREOPERATIVE DIAGNOSIS: Acute appendicitis. POSTOPERATIVE DIAGNOSIS: Acute appendicitis. PROCEDURE: Laparoscopic appendectomy. SURGEON: Phu Hayden MD. TYPE OF ANESTHESIA: General endotracheal. DESCRIPTION OF PROCEDURE: The patient was brought into the operating room, placed on the operating room table in the supine position. After smooth induction of general endotracheal anesthesia, Venodyne boots were placed on both legs and prophylactic antibiotics were given. The entire abdomen was prepped and draped in usual sterile fashion. The infraumbilical area in the midline was infiltrated with local anesthetic and incised with a #15 blade in a vertical fashion. The incision was brought down to the subcutaneous tissue using Bovie electrocautery. The linea alba was identified and incised and the peritoneal cavity was accessed. A 0 Vicryl stitch was placed on each side with end-to-side fashion and a Sherry trocar was inserted under direct visualization. The obturator was removed and the port was connected with a CO2 tank generating pneumoperitoneum up to 15 mmHg. A 10 mm 30-degree laparoscope video camera was inserted and the abdomen was inspected. The appendix appeared to be enlarged and inflamed and a small amount of cloudy reactive fluid was identified in the right pericolic gutter. Two 5 mm ports were inserted into the lower abdomen, mainly in the suprapubic area in the left lower quadrant area. Through those ports, Endo grasper and a 5 mm LigaSure were inserted and the appendix was freed from its attachments to the surrounding tissues and the mesoappendix was secured with a LigaSure all the way to the base of the appendix. The camera was fixed with a 5 mm and was inserted through the left lower quadrant port and an Endo MISTI 45 blue stapler was placed through the infraumbilical port and fired across the base of the appendix. The specimen was placed in an Endo bag and removed from the operating field and sent to pathology with appropriate label for permanent sections. The abdomen was irrigated with copious amounts of warm normal saline. There was no evidence of bleeding or succus from the staple line. The infraumbilical fascia was closed with interrupted 0 Vicryl stitches and the integrity of the fascial closure was checked by placing a 5 mm 30-degree laparoscopic video camera through the 5 mm port. There was no evidence of bleeding. The remaining two 5 mm ports were removed under direct laparoscopic visualization, and there was no evidence of bleeding from the port sites. All skin incisions were closed with 4-0 continuous subcuticular Monocryl stitch and sterile dressings were applied. At the end of the surgery, the counts of instruments, gauze, and needles were correct x2. The patient tolerated the surgery well and was transferred in stable condition to the recovery room. Phu Hayden MD
== END 2018-06-19 21:17 | disposition home or self-care (01) | DRG 883 ==
LOC: ED 02:01 → ERH 04:33 → 5RSO 06:18
PROVIDERS: ADMIT Specialist; ATTEND Specialist
PROC: 0DTJ4ZZ Resection of Appendix, Percutaneous Endoscopic Approach (ICD-10-PCS; principal; 2018-06-18 14:00)
DX: K35.80 Unspecified acute appendicitis (principal)

== ENCOUNTER 2018-07-10 22:33 | Emergency (ER) | payer MEDICAID ==
--- NOTE | 2018-07-10 22:53 | ED PDOC ---
Arrival/HPI - General Historian: Patient - History of Present Illness Narrative History of Present Illness (Text): 07/10/18 22:47 28 y/o female, no significant pmh, nkda, s/p appendectomy by Dr. Hayden, c/o RLQ pain x 3 weeks. Pt. stated that she has this pain s/p surgery of appendectomy, feeling distended, no pelvic pain, no fever or chills, no night sweat, no vaginal bleeding or discharge, no dizziness, no change in vision, no numbness or tingling, no other medical or psychological complaints. Past Medical History - Provider Review Nursing Documentation Reviewed: Yes - Infectious Disease Hx of Infectious Diseases: None - Tetanus Immunization Tetanus Immunization: Unknown - Past Medical History Past Medical History: No Previous - Cardiac Hx Cardiac Disorders: No - Pulmonary Hx Respiratory Disorders: No - Neurological Hx Neurological Disorder: No - HEENT Hx HEENT Disorder: No - Renal Hx Renal Disorder: No - Endocrine/Metabolic Hx Endocrine Disorders: Yes Other/Comment: gestational diabetes during in 2017 diet controlled pt gave 10/2016 - Hematological/Oncological Hx Blood Transfusions: No Hx Blood Transfusion Reaction: No - Integumentary Hx Dermatological Disorder: No - Musculoskeletal/Rheumatological Hx Falls: No - Gastrointestinal Hx Gastrointestinal Disorders: Yes Other/Comment: chronic constipation, drinks a detox tea when constipated, last bm 5 days ago - Genitourinary/Gynecological Hx Genitourinary Disorders: Yes Other/Comment: miscarriage 11/2015, ovarian cyst "exploded inside causing pain and headache, 1 month after miscarriage no sx. pt has 2 full term pregnancies 10/2010 and 10/2016 - Psychiatric Hx Substance Use: No - Past Surgical History Past Surgical History: No Previous - Anesthesia Hx Anesthesia: No Hx Anesthesia Reactions: No Hx Malignant Hyperthermia: No - Suicidal Assessment Feels Threatened In Home Enviroment: No Family/Social History - Physician Review Nursing Documentation Reviewed: Yes Family/Social History: Unknown Family HX Smoking Status: Never Smoked Hx Alcohol Use: No Hx Substance Use: No Allergies/Home Meds Allergies/Adverse Reactions: Allergies No Known Allergies Allergy (Verified 07/10/18 22:46) per patient Review of Systems - Review of Systems Constitutional: absent: Fatigue, Fevers Eyes: absent: Vision Changes ENT: absent: Hearing Changes Respiratory: absent: SOB, Cough Cardiovascular: absent: Chest Pain Gastrointestinal: Abdominal Pain. absent: Diarrhea, Nausea, Vomiting Musculoskeletal: absent: Arthralgias, Back Pain Skin: absent: Rash, Pruritis Neurological: absent: Headache, Dizziness Psychiatric: absent: Anxiety, Depression, Suicidal Ideation Physical Exam - Systems Exam Head: Present: Atraumatic, Normocephalic Pupils: Present: PERRL Extroacular Muscles: Present: EOMI Conjunctiva: Present: Normal Mouth: Present: Moist Mucous Membranes Neck: Present: Normal Range of Motion Respiratory/Chest: Present: Clear to Auscultation, Good Air Exchange. No: Respiratory Distress, Accessory Muscle Use Cardiovascular: Present: Regular Rate and Rhythm, Normal S1, S2. No: Murmurs Abdomen: Present: Tenderness (RLQ), Normal Bowel Sounds, Scars (healed scars noted). No: Distention, Peritoneal Signs, Rebound, Guarding, Rovsing's Sign Present, Hernias Back: Present: Normal Inspection Upper Extremity: Present: Normal Inspection. No: Cyanosis, Edema Lower Extremity: Present: Normal Inspection. No: Edema Neurological: Present: GCS=15, CN II-XII Intact, Speech Normal, Motor Func Grossly Intact, Normal Cerebellar Funct, Gait Normal, Memory Normal Skin: Present: Warm, Dry, Normal Color. No: Rashes Psychiatric: Present: Alert, Oriented x 3, Normal Insight, Normal Concentration Medical Decision Making ED Course and Treatment: 07/10/18 22:54 Differential: Bowel obstruction vs. Intestinal obstruction vs. peritonitis vs. abscess vs. strangulated hernia -Labs -CT abdomen and pelvis with po and IV contrast -IV toradol -Observe and reassess 07/11/18 01:05 -Urine hcg is negative -Labs are nonsignificant except wbc 12.1 (afebrile, likely pain induced) -UA show no UTI -CT abdomen and pelvis ordered and pending result -Observe and reassess 07/11/18 01:36 -I spoke to residential aide Dr. Mars, he is here to evaluate the patient and would review the CT abdomen/pelvis 07/11/18 02:49 -residential aide Dr. Mars, evaluated the patient/evaluated the patient and reviewed the CT, spoke to Dr. Estes and agreed to discharged home, recommend treatment for constipation as they reviewed it on the CT scan. -CT Show: Changes of pelvic congestion syndrome, unchanged. Appendectomy in the interim. Uncomplicated colonic diverticulosis. 1.7 cm right ovarian follicle/corpus luteum cyst. No evidence of acute abdominal or pelvic pathology. -I spoke to the obgyn attending Dr. Hand and discussed about pelvic congestion syndrome which is unchanged, she recommend to discharged home and outpatient follow up. -I discussed all labs and reports plus consults with the patient, she agreed with the consults and wants to be discharge home. -Discharge home with motrin, fluid, hydration, call Dr. Hayden on friday for sooner appointment follow in 2 days, see your own pmd and obgyn/GI within 2 days , return to the ER for any new or worsening signs or symptoms. - RAD Interpretation Radiology Orders: CT SCAN OF THE ABDOMEN AND PELVIS WITH CONTRAST. CLINICAL HISTORY: Abdominal pain. COMPARISON: 06/18/2018 03:25 AM EDT: CT\\SR: ABD PELVIS IV CONTRAST ONLY. TECHNIQUE: Multiple axial and coronal CT images were obtained through the abdomen and pelvis after administration of intravenous and oral contrast material. COMMENTS: Appendectomy in the interim. Uncomplicated colonic diverticulosis. 1.7 cm right ovarian follicle/corpus luteum cyst. There is a pelvic congestion syndrome, unchanged. The liver is of uniform attenuation without mass or defect. There is no intra or extrahepatic biliary ductal dilatation. The spleen is normal. The gallbladder is within normal limits. The pancreas is of normal contour and attenuation characteristics. There is no evidence of adrenal mass. Both kidneys demonstrate prompt and equal nephrograms. The kidneys are normal in size, shape and configuration. There is no evidence of renal or ureteral mass. No renal or ureteral calculi are identified. There is no hydroureter or hydronephrosis. There is no bowel wall thickening. No evidence for small or large bowel obstruction. There is no evidence of abdominal ascites or lymphadenopathy. There is no evidence of intrinsic or extrinsic bladder mass. There is no pelvic ascites or lymphadenopathy. Images of the lung bases show no evidence of pleural or parenchymal mass. There are no pleural effusions. The bony structures are free of lytic or blastic lesions. IMPRESSION: Changes of pelvic congestion syndrome, unchanged. Appendectomy in the interim. Uncomplicated colonic diverticulosis. 1.7 cm right ovarian follicle/corpus luteum cyst. No evidence of acute abdominal or pelvic pathology. Thank you for your kind referral of this patient. Electronically signed on July 11, 2018 2:39:44 AM EDT by: Carli Burgess M.D., Certified by ABR, MSK, Neuroradiology [employer]: Radiologist - PA / CORPORATE ADMINISTRATIVE ASSISTANT / Resident Statement MD/DO has reviewed & agrees with the documentation as recorded. Disposition/Present on Arrival - Present on Arrival Any Indicators Present on Arrival: No History of DVT/PE: No History of Uncontrolled Diabetes: No Urinary Catheter: No History of Decub. Ulcer: No History Surgical Site Infection Following: None - Disposition Have Diagnosis and Disposition been Completed?: Yes Diagnosis: Constipation, Ovarian cyst, Chronic abdominal pain, Pelvic congestion syndrome Disposition: HOME/ ROUTINE Disposition Time: 02:54 Patient Plan: Discharge Condition: IMPROVED Additional Instructions: -Discharge home with motrin, fluid, hydration, call Dr. Hayden on friday for sooner appointment follow in 2 days, see your own pmd and obgyn/GI within 2 days, return to the ER for any new or worsening signs or symptoms. Prescriptions: Ibuprofen [Motrin] 600 mg PO QID PRN #30 tab PRN Reason: Other Referrals: PCP,NO [Primary Care Provider] - Follow up with primary Robyn Hand MD [Staff Provider] - Follow up with primary Jasmyne Lowe MD [Medical Doctor] - Follow up with primary Phu Hayden MD [Staff Provider] - [place] up [place] [facility] [place] [facility] [place] [facility] [place] - Follow up with primary Forms: WORK NOTE
[2018-07-10 22:58] VITALS: BMI 30.5
[2018-07-10] MEDS ORDERED: Iohexol 240 (50 ml) ONE (23:02)
[2018-07-10] MEDS ORDERED: Iohexol 350 MG/100 ML VIAL ONE (23:07)
[2018-07-10 23:37] LABS: ALB/GLOB RATIO 1.3 (1.1-1.8); ALBUMIN 4.2 g/dL (3.0-4.8); ALT/SGPT 18 U/L (7-56); AST/SGOT 19 U/L (14-36); BLOOD UREA NITROGEN 12 mg/dL (7-21); CALCIUM 9.1 mg/dL (8.4-10.5); GFR NON-AFRICAN AMERICAN > 60; LIPASE 68 U/L (23-300)
[2018-07-10 23:38] LABS: BASO # 0.03 K/mm3 (0.0-2.0); BASO % 0.2 % (0.0-3.0); EOS # 0.2 (0.0-0.7); EOS % 1.9 % (1.5-5.0); HEMOGLOBIN 12.8 g/dL (12.0-16.0); LYMPH # 3.8 (1.2-3.4); LYMPH % 31.6 % (22.0-35.0); MEAN CELL VOLUME 87.5 fl (80.0-105.0); MEAN CORPUSCULAR HEMOGLOBIN 28.6 pg (25.0-35.0); MEAN CORPUSCULAR HGB CONC 32.7 g/dl (31.0-37.0); MEAN PLATELET VOLUME 11.3 fl (7.0-11.0); MONO # 0.6 (0.1-0.6); MONO % 4.6 % (1.0-6.0); RBC 4.48 10^6/uL (3.5-6.1); RED CELL DISTRIBUTION WIDTH 12.9 % (11.5-14.5); WHITE BLOOD COUNT 12.1 10^3/uL (4.5-11.0)
[2018-07-11 00:45] LABS: URINE BILIRUBIN NEGATIVE (NEGATIVE); URINE BLOOD TRACE-LYSED (NEGATIVE); URINE GLUCOSE (UA) NEGATIVE (NEGATIVE); URINE LEUKOCYTE ESTERASE NEGATIVE Leu/uL (NEGATIVE); URINE PROTEIN NEGATIVE mg/dL (<30 mg/dL); URINE UROBILINOGEN 0.2 E.U./dL (<1 E.U./dL)
[2018-07-11 00:50] LABS: URINE APPEARANCE CLEAR (CLEAR); URINE COLOR LIGHT YELLOW (YELLOW)
[2018-07-11 00:57] LABS: URINE BACTERIA OCC /hpf; URINE EPITHELIAL CELLS 0 - 2 /hpf (0-5); URINE RBC 0 - 2 /hpf (0-2); URINE WBC 0 - 2 /hpf (0-6)
[2018-07-11 01:16] VITALS: RESP 18
[2018-07-11] MEDS ORDERED: Magnesium Citrate Oral SOL (300 ml) PO ONE (02:49)
[2018-07-11 03:44] VITALS: BP 105/62; PULSE 82; TEMP 98.2; O2SAT 99
--- NOTE | 2018-07-11 12:07 | CT ---
Date of service: 07/11/2018 PROCEDURE: CT Abdomen and Pelvis with contrast HISTORY: RLQ pain s/p appendectomy, c/o distension/pain COMPARISON: 06/18/2018 TECHNIQUE: Contrast dose: 100 cc of Omni 350 Radiation dose: Total exam DLP = 1280.73 mGy-cm. This CT exam was performed using one or more of the following dose reduction techniques: Automated exposure control, adjustment of the mA and/or kV according to patient size, and/or use of iterative reconstruction technique. FINDINGS: LOWER THORAX: Unremarkable. LIVER: Unremarkable. No gross lesion or ductal dilatation. GALLBLADDER AND BILE DUCTS: Unremarkable. PANCREAS: Unremarkable. No gross lesion or ductal dilatation. SPLEEN: Unremarkable. ADRENALS: Unremarkable. No mass. KIDNEYS AND URETERS: Unremarkable. No hydronephrosis. No solid mass. VASCULATURE: Unremarkable. No aortic aneurysm. No aortic atherosclerotic calcification or mural plaque present. BOWEL: Unremarkable. No obstruction. No gross mural thickening. APPENDIX: Recent appendectomy. No evidence of abscess. PERITONEUM: Unremarkable. No free fluid. No free air. LYMPH NODES: Unremarkable. No enlarged lymph nodes. BLADDER: Unremarkable. REPRODUCTIVE: Ovarian cysts. Prominent ovarian veins. BONES: No acute fracture. OTHER FINDINGS: The report concurs with the preliminary [facility] report IMPRESSION: No acute intra-abdominal findings
== END 2018-07-11 03:44 | disposition home or self-care (01) ==
LOC: ED 22:33
DX: N83.209 Unspecified ovarian cyst, unspecified side (principal); K59.00 Constipation, unspecified; G89.29 Other chronic pain; R10.31 Right lower quadrant pain; N94.89 Other specified conditions associated with female genital organs and menstrual cycle
CPT/HCPCS: 74177; 80053; 81001; 81025; 83690; 85025; 96374; 99284; J1885; Q9966; Q9967